=== PATIENT | female | born 2000 | race Caucasian/White ===

== ENCOUNTER 2019-01-22 08:11 | Emergency (ER) | payer OTHER ==
--- NOTE | 2019-01-22 08:55 | RADIOLOGY REPORT (SQ) ---
EXAM DESCRIPTION: CHEST 2 VIEWS COMPLETED DATE/TIME: 01/22/2019 8:42 am REASON FOR STUDY: Chest Pain COMPARISON: None. EXAM PARAMETERS: NUMBER OF VIEWS: two views TECHNIQUE: Digital Frontal and Lateral radiographic views of the chest acquired. RADIATION DOSE: NA LIMITATIONS: none FINDINGS: LUNGS AND PLEURA: No opacities, masses or pneumothorax. No pleural effusion. MEDIASTINUM AND HILAR STRUCTURES: No masses or contour abnormalities. HEART AND VASCULAR STRUCTURES: Heart normal size. No evidence for failure. BONES: No acute findings. HARDWARE: None in the chest. OTHER: No other significant finding. IMPRESSION: Normal chest radiograph. TECHNICAL DOCUMENTATION: JOB ID: [id number] [employer]- All Rights Reserved Reading location - IP/workstation name: [email or web address]
--- NOTE | 2019-01-22 09:08 | ER Document Report ---
HPI - HPI Time Seen by Provider: 01/22/19 08:49 Pain Level: 2 Context: Healthy 18-year-old female presents the emergency department with chief complaint of chest pain since Monday. Patient vapes nicotine but not THC. That is what prompted her to get seen as she is concerned as she has had shortness of breath that she thinks is secondary to pain. Patient states that it is sharp and stabbing in her right side that sometimes intermittently goes on the left side as well. No associated nausea or diaphoresis, pain does not radiate to her arms or her jaw, patient does not smoke cigarettes. No abdominal pain. No other complaints - EENT EENT: DENIES: Sore Throat, Ear Pain, Eye problems - NEURO Neurology: DENIES: Headache, Weakness, Vision blurred, Dizzinesss / Vertigo - CARDIOVASCULAR Cardiovascular: REPORTS: Chest pain - RESPIRATORY Respiratory: DENIES: Trouble Breathing, Coughing - GASTROINTESTINAL Gastrointestinal: DENIES: Abdominal Pain, Black / Bloody Stools - URINARY Urinary: DENIES: Dysuria, Urgency, Frequency - REPRODUCTIVE LMP: 01/2019 Reproductive: DENIES: : - MUSCULOSKELETAL Musculoskeletal: DENIES: Extremity pain Past Medical History - Social History Smoking Status: Never Smoker Chew tobacco use (# tins/day): No Frequency of alcohol use: None Drug Abuse: None Family History: None Patient has suicidal ideation: No Patient has homicidal ideation: No Vertical Provider Document - CONSTITUTIONAL Notes: PHYSICAL EXAMINATION: Reviewed vital signs and charting by RN GENERAL: Alert, interacts well. No acute distress. HEAD: Normocephalic, atraumatic. EYES: Pupils equal and round. Extraocular movements intact. ENT: Oral mucosa moist, tongue midline. NECK: Full range of motion. Trachea midline. LUNGS: Clear to auscultation bilaterally, no wheezes, rales, or rhonchi. No respiratory distress. HEART: Regular rate and rhythm. No murmur ABDOMEN: soft, non-tender. No distention. Bowel sounds present EXTREMITIES: Moves all 4 extremities spontaneously. No edema, No cyanosis. PSYCH: Normal affect, normal mood. SKIN: Warm, dry, normal turgor. No rashes or lesions noted. - INFECTION CONTROL TRAVEL OUTSIDE OF THE [place] IN LAST 30 DAYS: No Course - Re-evaluation Re-evalutation: 01/22/19 09:10 Well-appearing in no acute distress. Patient is concerned for a vaping associated lung injury. Chest x-ray was completely normal, no focal consolidation or infiltrate, no pneumothorax or pneumomediastinum. EKG showed normal sinus rhythm with a rate of 61, normal axis, QTC [address] segment elevation or depression, no acute T wave changes. Most likely symptoms are related to chest wall pain and I have given patient instructions and strict return precautions. Patient is in agreement with plan and is stable for discharge. - Vital Signs Vital signs: Temp Pulse Resp BP Pulse Ox 98.0 F 71 14 134/75 H 99 01/22/19 08:26 01/22/19 08:20 01/22/19 08:26 01/22/19 08:20 01/22/19 08:26 Discharge - Discharge Clinical Impression: Chest wall pain Condition: Good Disposition: HOME, SELF-CARE Additional Instructions: You were seen in the emergency department today for chest wall pain. Your EKG was completely normal and your chest x-ray is also normal. There is no evidence of a pneumothorax or any vaping associated injury. This is all very reassuring and your symptoms are most likely due to muscle wall pain. Like we discussed please take ibuprofen 600 mg with food and/or milk every 6 hours plus or minus Tylenol 1000 mg every 6 hours for pain. If you stay on the ibuprofen scheduled for a couple of days you should see some relief. Also, like we discussed please return to the emergency department if you develop worsening chest pain that is constant, you have associated dizziness/lightheadedness with chest pain, nausea or sweats with the chest pain, you pass out, or you have any other concerns at all.
--- NOTE | 2019-01-22 09:44 | EKG REPORT ---
SEVERITY:- NORMAL ECG - SINUS RHYTHM : Confirmed by: Francois Cao MD 22-Jan-2019 09:43:51
[2019-01-22 09:49] VITALS: BP 116/66
== END 2019-01-22 09:48 | disposition home or self-care (01) ==
LOC: ER 08:11
DX: R07.89 Other chest pain (principal)
CPT/HCPCS: 71046; 93005; 93010; 99285